=== PATIENT | female | born 1970 | race Hispanic/Latino ===

== ENCOUNTER 2019-09-18 07:05 | Outpatient (CLI) | payer BC ==
--- NOTE | 2019-09-18 07:52 | ULT ---
ULTRASOUND ABDOMEN COMPLETE: DATE: 09/18/2019 HISTORY: 49-year-old female with epigastric pain and nausea FINDINGS: Liver:Normal size and echogenicity. Gallbladder:Numerous tiny echogenic immobile foci embedded in the wall causing comet tail artifact. N o gallstones, sludge, pericholecystic fluid, or excessive luminal distention. Mural thickness 3 mm, upper limits of normal. Common duct:3 mm Spleen:No splenomegaly Pancreas:No sonographic abnormality identified. Kidneys:No hydronephrosis. Normal sonographic appearance. Abdominal aorta:Extensive atherosclerotic irregularity. No aneurysm. Inferior vena cava:Unremarkable where visualized. IMPRESSION: 1. Adenomyomatosis of the gallbladder. 2. No evidence of cholelithiasis or acute cholecystitis. 3. Diffuse atherosclerosis of abdominal aorta.
== END 2019-09-18 07:06 | disposition home or self-care (01) ==
LOC: BICULT 07:05
PROVIDERS: ATTEND Internal Medicine Gastroenterology
DX: R10.13 Epigastric pain (principal); R11.0 Nausea; R63.0 Anorexia; R63.4 Abnormal weight loss; R19.4 Change in bowel habit; I70.0 Atherosclerosis of aorta; K82.8 Other specified diseases of gallbladder
CPT/HCPCS: 93975

== ENCOUNTER 2019-10-18 08:26 | Outpatient (CLI) | payer BC ==
[2019-10-18] MEDS ORDERED: Iopamidol-370 76% 500 ML 1 ML ONE (09:25)
--- NOTE | 2019-10-18 09:44 | CT ---
EXAM: CT ABDOMEN AND PELVIS HISTORY: Abdominal pain, loss of appetite, 6 pound weight loss in 2 months. Nausea. COMPARISON: 11/19/2014 Procedure: Multiple contiguous axial images were obtained and a CT of the abdomen and pelvis with IV contrast. C oronal reformats were performed. FINDINGS: Lower Chest: within normal limits. Vessels: Normal caliber aorta. No periaortic fat stranding Heart: Normal heart size. No significant pericardial fluid Abdomen: Portal vein:Patent Gallbladder: No calcified gallstones. Normal caliber wall. Liver: Subcentimeter hypodensity in the right hepatic lobe and hepatic parenchyma adjacent to the fal ciform ligament are noted. The hypodensities are present on the previous CT. There are no enhancing masses in the liver Pancreas: within normal limits. Spleen: within normal limits. Adrenals: within normal limits. Kidneys: Symmetric enhancement. No obstructive uropathy. Peritoneum: Limited evaluation due to decreased visceral fat. No ascites or free air, no fluid collec tion. Bowel: No evidence of bowel obstruction. Ileocecal junction is unremarkable. Normal caliber appendix. Scattered fecal material in a nondistended, nondilated colon. Mucosal prominence of the left hemicolon is felt to be due to inadequate distention. Mesentery and Retroperitoneum: No enlarged mesenteric or retroperitoneal lymph nodes. Abdominal Wall: within normal limits. Pelvis: Reproductive Organs: Uterus and adnexal structures have a normal appearance. Subcentimeter hypodensit y in the right adnexa likely represents a right ovarian follicle. Heterogeneous attenuation in the lower uterine segment and vaginal vault. Pelvis: No mass, lymphadenopathy, free air or free fluid. Bladder: within normal limits. Bones: No lytic or blastic lesions in the osseous structures IMPRESSION: 1. Mucosal prominence the left hemicolon is not thickened may be due to inadequate distention 2. Heterogeneous attenuation in the lower uterine segment and vaginal vault. Underlying pathology can not be excluded. Consider [employer] consultation.
== END 2019-10-18 08:27 | disposition home or self-care (01) ==
LOC: BICCT 08:26
PROVIDERS: ATTEND Internal Medicine Gastroenterology
DX: R10.9 Unspecified abdominal pain (principal); R11.0 Nausea; R63.0 Anorexia; R63.4 Abnormal weight loss; K82.8 Other specified diseases of gallbladder; R93.89 Abnormal findings on diagnostic imaging of other specified body structures
CPT/HCPCS: 74177; Q9967